=== PATIENT | female | born 1955 | race Hispanic/Latino ===

== ENCOUNTER 2018-04-23 15:33 | Emergency (ER) | payer OTHER, BC ==
[~2018-04-23] VITALS: Ht 154.9 cm; Wt 53.1 kg
[~2018-04-23 15:33] MED LIST: IBUPROFEN200 MG PO; PREVENT SOFTGE1 EACH PO; VITAMIN A8000 UNIT PO; VITAMIN D1000 UNIT PO; VITAMIN E100 UNI3 PO
[2018-04-23] MEDS ORDERED: LEVOTHYROXINE75 MCG PO (15:49)
== END 2018-04-23 18:03 | disposition home or self-care (01) ==
LOC: ED 15:33
DX: Z77.21 Contact with and (suspected) exposure to potentially hazardous body fluids (principal); Z85.43 Personal history of malignant neoplasm of ovary; F17.200 Nicotine dependence, unspecified, uncomplicated; Z79.899 Other long term (current) drug therapy; Z90.710 Acquired absence of both cervix and uterus
CPT/HCPCS: 36415; 84460; 86703; 86707; 86803; 87350; 99283